=== PATIENT | male | born 1935 | race Caucasian/White ===

== ENCOUNTER 2016-07-23 10:55 | Emergency (ER) | payer SELFPAY ==
[~2016-07-23] VITALS: Ht 172.7 cm; Wt 73.9 kg
[~2016-07-23 10:55] MED LIST: AMIODARONE HCL200 MG PO; AMLODIPINE BESY10 MG PO; AMLODIPINE BESYL5 MG PO; ASPIR 8181 M1 PO; ASPIR-LOW81 MG PO; ATORVASTATIN CA40 MG PO; ATORVASTATIN CA80 MG PO; ATROVENT 00.5 MG/2.5 IH; Ambien PO; CARDIZEM CD,CA300 MG PO; CARDIZEM30 MG PO; CATAPRES0.1 MG PO; COZAAR100 MG PO; CRESTOR20 MG PO; Catapres PO; Colace PO; Cozaar PO; DEXTROSE IV; DILTIAZEM IV; DORZOLAMIDE BOTH EYES; DORZOLAMIDE-TIM10 ML BOTH EYES; Dextrose 10% in Wate IV; Dextrose 50% in Wate IV; ELIQUIS5 MG PO; Ecotrin PO; FISH OIL 1,0001 EACH PO; GLAUCOMA EYE DROP BOTH EYES; GLUCAGEN1 MG IM/SC; HYDROCHLOROTH12.5 M3 PO; HYDROCHLOROTHIA25 MG PO; LASIX20 MG PO; LASIX40 MG PO; LATANOPROST2.5 ML BOTH EYES; LOPRESSOR100 M1 PO; LOPRESSOR25 MG PO; LOPRESSOR50 MG PO; LOSARTAN POTAS100 MG PO; Levaquin PO; METOPROLOL TAR100 MG PO; METOPROLOL TART25 MG PO; METOPROLOL TART50 MG PO; Maalox, Mylanta PO; NEXTERONE360 MG/200 IV; NORVASC10 MG PO; Nitrostat,NitroQuick SL; Norvasc PO; PLAVIX75 MG PO; POTASSIUM CHLO10 ME3 PO; Pepcid PO; Percocet 5/325,Endoc PO; SALINE FLUSH 5 M5 ML IV; TYLENOL REGULA325 MG PO; XALATAN2.5 ML BOTH EYES; Xopenex IH; Zofran IV; predniSONE PO
[2016-07-23] MEDS ORDERED: ULTRAM50 MG PO (14:20)
[2016-07-23 14:35] VITALS: BP 176/87
== END 2016-07-23 14:37 | disposition home or self-care (01) ==
LOC: EME 10:55
DX: S43.401A Unspecified sprain of right shoulder joint, initial encounter (principal); W18.09XA Striking against other object with subsequent fall, initial encounter; Y92.511 Restaurant or cafe as the place of occurrence of the external cause; Y93.01 Activity, walking, marching and hiking; E78.5 Hyperlipidemia, unspecified; I10 Essential (primary) hypertension; Z87.442 Personal history of urinary calculi; Z95.5 Presence of coronary angioplasty implant and graft; Z79.82 Long term (current) use of aspirin; Z79.01 Long term (current) use of anticoagulants; I48.91 Unspecified atrial fibrillation; Z87.891 Personal history of nicotine dependence
CPT/HCPCS: 71250; 73030; 99281; 99284

== ENCOUNTER 2017-09-03 09:25 | Day surgery (SDC) | payer OTHER, MEDICARE ==
[~2017-09-03] VITALS: Ht 172.7 cm; Wt 73.0 kg
[~2017-09-03 09:25] MED LIST changes: +FUROSEMIDE40 MG PO; +ULTRAM50 MG PO; +VALACYCLOVIR500 MG PO
== END 2017-09-03 12:30 | disposition home or self-care (01) ==
LOC: CATH 09:25
PROC: 5A2204Z Restoration of Cardiac Rhythm, Single (ICD-10-PCS; principal; 2017-09-03)
DX: I48.0 Paroxysmal atrial fibrillation (principal); I48.92 Unspecified atrial flutter; I25.10 Atherosclerotic heart disease of native coronary artery without angina pectoris; Z98.1 Arthrodesis status; I10 Essential (primary) hypertension; E78.5 Hyperlipidemia, unspecified; Z79.01 Long term (current) use of anticoagulants
CPT/HCPCS: 93005

== ENCOUNTER 2017-09-11 19:35 | Inpatient (IN) | payer OTHER, MEDICARE ==
[~2017-09-11] VITALS: Ht 172.7 cm; Wt 67.4 kg
[2017-09-11 04:50] VITALS: BP 132/94
[~2017-09-11 19:35] MED LIST changes: -FUROSEMIDE40 MG PO; +LASIX80 MG PO
[2017-09-11 20:28] LABS: HEMATOCRIT 43.4 % (38.0-50.0); HEMOGLOBIN 15.1 G/DL (12.5-16.6); MCH 31.2 PG (29.0-34.0); MCHC 34.8 G/DL (30.0-36.0); MCV 89.7 FL (86-99); PLATELET COUNT 317 K/uL (156-360); RBC DIS.WIDTH-CV 14.2 % (11.8-14.6); RBC DIS.WIDTH-SD 46.5 % (39-53); RED BLOOD COUNT 4.84 M/uL (4.00-5.50); WHITE BLOOD COUNT 14.5 K/uL (4.1-10.2)
[2017-09-11 20:41] LABS: CHLORIDE 106 mEq/L (99-109); POTASSIUM 3.4 mEq/L (3.7-5.4); SODIUM 141 mEq/L (136-147)
[2017-09-11 20:42] LABS: GLUCOSE 110 mg/dL (70-99)
[2017-09-11 20:46] LABS: GFR ESTIMATE (CALCULATED) > 59 mL/min/ (58.99-99999)
[2017-09-11 20:46] LABS: CARBON DIOXIDE (BICARBONATE) 27.2 MEQ/L (20-31)
[2017-09-11 20:47] LABS: UREA NITROGEN (BUN) 17 mg/dL (9-23)
[2017-09-11 20:52] LABS: TROP-I INTERPRETATION NEGATIVE; TROPONIN-I 0.02 ng/mL (0.0-0.30)
[2017-09-11] MEDS ORDERED: MULTAQ400 MG PO (20:58)
[2017-09-12] VITALS (8 sets, daily range): BP systolic 108–132; BP diastolic 68–94
[2017-09-12 02:54] LABS: TROP-I INTERPRETATION NEGATIVE; TROPONIN-I 0.02 ng/mL (0.0-0.30)
[2017-09-12 04:37] LABS: BASOPHIL (%) 0.8 % (0-1); BASOPHIL COUNT 0.1 K/uL (0-0.1); EOSINOPHIL (%) 5.5 % (0-5); EOSINOPHIL COUNT 0.7 K/uL (0-0.3); HEMATOCRIT 44.3 % (38.0-50.0); HEMOGLOBIN 15.2 G/DL (12.5-16.6); IMMATURE GRANULOCYTE (%) 0.4 % (0.0-0.7); LYMPHOCYTE (%) 7.9 % (15-42); LYMPHOCYTE COUNT 1.1 K/uL (1.0-2.8); MCHC 34.3 G/DL (30.0-36.0); MCV 90.4 FL (86-99); MONOCYTE (%) 5.2 % (3-12); MONOCYTE COUNT 0.7 K/uL (0-0.8); NEUTROPHIL (%) 80.2 % (45-76); NEUTROPHIL COUNT 10.8 K/uL (1.8-6.4); PLATELET COUNT 298 K/uL (156-360); RBC DIS.WIDTH-CV 14.3 % (11.8-14.6); RBC DIS.WIDTH-SD 47.5 % (39-53); WHITE BLOOD COUNT 13.5 K/uL (4.1-10.2)
[2017-09-12 04:49] LABS: CHLORIDE 109 mEq/L (99-109); POTASSIUM 3.6 mEq/L (3.7-5.4); SODIUM 143 mEq/L (136-147)
[2017-09-12 04:51] LABS: GLUCOSE 104 mg/dL (70-99)
[2017-09-12 04:55] LABS: CREATININE 0.9 mg/dL (0.6-1.3); GFR ESTIMATE (CALCULATED) > 59 mL/min/ (58.99-99999)
[2017-09-12 04:56] LABS: UREA NITROGEN (BUN) 17 mg/dL (9-23)
[2017-09-13 04:53] VITALS: BP 129/76
[2017-09-13 06:03] LABS: BASOPHIL (%) 0.5 % (0-1); BASOPHIL COUNT 0.1 K/uL (0-0.1); EOSINOPHIL (%) 4.2 % (0-5); EOSINOPHIL COUNT 0.7 K/uL (0-0.3); HEMATOCRIT 42.1 % (38.0-50.0); HEMOGLOBIN 14.1 G/DL (12.5-16.6); IMMATURE GRANULOCYTE (%) 0.5 % (0.0-0.7); LYMPHOCYTE (%) 5.1 % (15-42); LYMPHOCYTE COUNT 0.9 K/uL (1.0-2.8); MCH 30.8 PG (29.0-34.0); MCHC 33.5 G/DL (30.0-36.0); MCV 91.9 FL (86-99); MONOCYTE (%) 4.3 % (3-12); MONOCYTE COUNT 0.7 K/uL (0-0.8); NEUTROPHIL (%) 85.4 % (45-76); NEUTROPHIL COUNT 14.3 K/uL (1.8-6.4); PLATELET COUNT 354 K/uL (156-360); RBC DIS.WIDTH-CV 14.8 % (11.8-14.6); RBC DIS.WIDTH-SD 50.1 % (39-53); RED BLOOD COUNT 4.58 M/uL (4.00-5.50); WHITE BLOOD COUNT 16.8 K/uL (4.1-10.2)
[2017-09-13 06:34] LABS: CHLORIDE 106 MEQ/L (99-109); GFR ESTIMATE (CALCULATED) > 59 mL/min/ (58.99-99999); GLUCOSE 101 mg/dL (70-99); POTASSIUM 4.2 MEQ/L (3.7-5.4); SODIUM 140 MEQ/L (136-147); UREA NITROGEN (BUN) 20 mg/dL (9-23)
[2017-09-13 07:11] VITALS: BP 123/87
[2017-09-13 08:03] LABS: BASE EXCESS 0.9 mEq/L (-3 to +3); BICARBONATE 24.2 mEq/L (22-26); METHEMOGLOBIN 1.7 % (0-1.5); PCO2 34 mm Hg (35-45); PO2 77 mm Hg (80-100); pH 7.46 (7.35-7.45)
[2017-09-13 08:04] LABS: COMMENTS - BLOOD GASES +C; DEVICE HFNC; O2 FLOW 10 L/MIN; SITE RR +A; TOTAL RESP RATE 22 resp/min
[2017-09-13 12:30] VITALS: BP 114/73
[2017-09-13 20:04] VITALS: BP 104/67
[2017-09-13 22:11] VITALS: BP 109/76
[2017-09-14] VITALS (8 sets, daily range): BP systolic 100–131; BP diastolic 58–83
[2017-09-14 05:10] LABS: BASOPHIL (%) 0.4 % (0-1); BASOPHIL COUNT 0.1 K/uL (0-0.1); EOSINOPHIL COUNT 0.2 K/uL (0-0.3); HEMATOCRIT 44.7 % (38.0-50.0); LYMPHOCYTE (%) 5.2 % (15-42); LYMPHOCYTE COUNT 0.9 K/uL (1.0-2.8); MCH 30.9 PG (29.0-34.0); MCHC 33.6 G/DL (30.0-36.0); MONOCYTE (%) 3.5 % (3-12); MONOCYTE COUNT 0.6 K/uL (0-0.8); NEUTROPHIL (%) 88.9 % (45-76); NEUTROPHIL COUNT 15.9 K/uL (1.8-6.4); PLATELET COUNT 317 K/uL (156-360); RBC DIS.WIDTH-CV 14.7 % (11.8-14.6); RBC DIS.WIDTH-SD 49.6 % (39-53); RED BLOOD COUNT 4.86 M/uL (4.00-5.50); WHITE BLOOD COUNT 17.9 K/uL (4.1-10.2)
[2017-09-14 05:49] LABS: CHLORIDE 105 mEq/L (99-109); POTASSIUM 3.8 mEq/L (3.7-5.4); SODIUM 139 mEq/L (136-147)
[2017-09-14 05:50] LABS: MAGNESIUM 2.1 mg/dL (1.3-2.7)
[2017-09-14 05:51] LABS: GLUCOSE 123 mg/dL (70-99)
[2017-09-14 05:55] LABS: GFR ESTIMATE (CALCULATED) > 59 mL/min/ (58.99-99999); UREA NITROGEN (BUN) 27 mg/dL (9-23)
[2017-09-15 04:45] VITALS: BP 98/54
[2017-09-15 05:45] LABS: BASOPHIL (%) 0.1 % (0-1); EOSINOPHIL (%) 0 % (0-5); HEMATOCRIT 41.9 % (38.0-50.0); HEMOGLOBIN 13.7 G/DL (12.5-16.6); IMMATURE GRANULOCYTE (%) 0.9 % (0.0-0.7); LYMPHOCYTE (%) 3.8 % (15-42); LYMPHOCYTE COUNT 0.9 K/uL (1.0-2.8); MCHC 32.7 G/DL (30.0-36.0); MCV 91.9 FL (86-99); MONOCYTE COUNT 0.5 K/uL (0-0.8); NEUTROPHIL (%) 93.2 % (45-76); NEUTROPHIL COUNT 21.7 K/uL (1.8-6.4); RBC DIS.WIDTH-CV 14.9 % (11.8-14.6); RBC DIS.WIDTH-SD 50.9 % (39-53); RED BLOOD COUNT 4.56 M/uL (4.00-5.50); WHITE BLOOD COUNT 23.3 K/uL (4.1-10.2)
[2017-09-15 05:50] LABS: CHLORIDE 108 MEQ/L (99-109); GFR ESTIMATE (CALCULATED) > 59 mL/min/ (58.99-99999); GLUCOSE 154 mg/dL (70-99); POTASSIUM 4.2 MEQ/L (3.7-5.4); SODIUM 144 MEQ/L (136-147); UREA NITROGEN (BUN) 31 mg/dL (9-23)
[2017-09-15 06:27] LABS: PLATELET COUNT 500 K/uL (156-360)
[2017-09-15 07:22] VITALS: BP 92/62
[2017-09-15 12:11] VITALS: BP 92/62
[2017-09-15 17:26] VITALS: BP 100/64
[2017-09-15 21:16] VITALS: BP 138/76
[2017-09-15 22:50] LABS: C DIFF TOXIN NEGATIVE (NEGATIVE)
[2017-09-16] VITALS: BP 118/76
[2017-09-16 04:19] VITALS: BP 113/71
[2017-09-16 05:01] LABS: BASOPHIL (%) 0.1 % (0-1); EOSINOPHIL (%) 0 % (0-5); HEMATOCRIT 40.3 % (38.0-50.0); HEMOGLOBIN 13.4 G/DL (12.5-16.6); IMMATURE GRANULOCYTE (%) 0.7 % (0.0-0.7); LYMPHOCYTE (%) 3.7 % (15-42); LYMPHOCYTE COUNT 0.7 K/uL (1.0-2.8); MCH 30.9 PG (29.0-34.0); MCHC 33.3 G/DL (30.0-36.0); MCV 93.1 FL (86-99); MONOCYTE (%) 2.1 % (3-12); MONOCYTE COUNT 0.4 K/uL (0-0.8); NEUTROPHIL (%) 93.4 % (45-76); NEUTROPHIL COUNT 18.7 K/uL (1.8-6.4); PLATELET COUNT 487 K/uL (156-360); RBC DIS.WIDTH-SD 51.8 % (39-53); RED BLOOD COUNT 4.33 M/uL (4.00-5.50)
[2017-09-16 05:16] LABS: CHLORIDE 111 mEq/L (99-109); POTASSIUM 4.2 mEq/L (3.7-5.4); SODIUM 145 mEq/L (136-147)
[2017-09-16 05:18] LABS: GLUCOSE 142 mg/dL (70-99)
[2017-09-16 05:21] LABS: CREATININE 1.1 mg/dL (0.6-1.3); GFR ESTIMATE (CALCULATED) > 59 mL/min/ (58.99-99999)
[2017-09-16 05:22] LABS: UREA NITROGEN (BUN) 38 mg/dL (9-23)
[2017-09-16 08:20] VITALS: BP 122/80
[2017-09-16 11:40] VITALS: BP 106/57
[2017-09-16 15:14] VITALS: BP 124/60
[2017-09-16 19:55] VITALS: BP 142/68
[2017-09-17] VITALS (7 sets, daily range): BP systolic 124–178; BP diastolic 62–84
[2017-09-17 05:53] LABS: BASOPHIL (%) 0.1 % (0-1); EOSINOPHIL (%) 0 % (0-5); HEMATOCRIT 39.9 % (38.0-50.0); HEMOGLOBIN 12.8 G/DL (12.5-16.6); IMMATURE GRANULOCYTE (%) 1.2 % (0.0-0.7); LYMPHOCYTE (%) 3.9 % (15-42); LYMPHOCYTE COUNT 0.7 K/uL (1.0-2.8); MCH 30.4 PG (29.0-34.0); MCHC 32.1 G/DL (30.0-36.0); MCV 94.8 FL (86-99); MONOCYTE (%) 2.7 % (3-12); MONOCYTE COUNT 0.5 K/uL (0-0.8); NEUTROPHIL (%) 92.1 % (45-76); PLATELET COUNT 488 K/uL (156-360); RBC DIS.WIDTH-CV 15.2 % (11.8-14.6); RBC DIS.WIDTH-SD 53.5 % (39-53); RED BLOOD COUNT 4.21 M/uL (4.00-5.50); WHITE BLOOD COUNT 17.3 K/uL (4.1-10.2)
[2017-09-17 06:31] LABS: CHLORIDE 112 MEQ/L (99-109); GFR ESTIMATE (CALCULATED) > 59 mL/min/ (58.99-99999); GLUCOSE 132 mg/dL (70-99); POTASSIUM 4.5 MEQ/L (3.7-5.4); SODIUM 146 MEQ/L (136-147); UREA NITROGEN (BUN) 35 mg/dL (9-23)
[2017-09-17 21:13] LABS: BASE EXCESS 0.3 mEq/L (-3 to +3); BICARBONATE 24.6 mEq/L (22-26); CARBOXY HGB 1.6 % (0-5); METHEMOGLOBIN 1.5 % (0-1.5); PCO2 38 mm Hg (35-45); PO2 63 mm Hg (80-100); SITE RR; pH 7.42 (7.35-7.45)
[2017-09-17 21:14] LABS: COMMENTS - BLOOD GASES A+C+; DEVICE HHFNC; FI02 100 %; O2 FLOW 70 L/MIN
[2017-09-18] VITALS (22 sets, daily range): BP systolic 92–177; BP diastolic 49–149
[2017-09-18 02:47] LABS: BASE EXCESS 0.6 mEq/L (-3 to +3); BICARBONATE 26.6 mEq/L (22-26); CARBOXY HGB 1.6 % (0-5); METHEMOGLOBIN 1.4 % (0-1.5); PCO2 47 mm Hg (35-45); PO2 73 mm Hg (80-100); pH 7.36 (7.35-7.45)
[2017-09-18 02:48] LABS: COMMENTS - BLOOD GASES A+C+; DEVICE VENT; FI02 100 %; INSPIRATION TIME 0.8 seconds; MECHANICAL RATE 14 resp/min; MODE ACVC+; PEEP 12 CM/H20; SITE LR; TIDAL VOLUME 450 ML; TOTAL RESP RATE 23 resp/min
[2017-09-18 03:15] LABS: APPEARANCE SL.HAZY ((CLEAR)); BILIRUBIN NEGATIVE; BLOOD MODERATE; COLOR YELLOW ((YELLOW)); GLUCOSE (STRIP) NEGATIVE; KETONES NEGATIVE; LEUKOCYTES NEGATIVE; NITRITE NEGATIVE; PROTEIN (STRIP) 100; SPECIFIC GRAVITY 1.023 (1.000-1.030); UROBILINOGEN 0.2 MG/DL (0.2-1.0)
[2017-09-18 03:26] LABS: BASOPHIL (%) 0.1 % (0-1); EOSINOPHIL (%) 0 % (0-5); HEMATOCRIT 39.9 % (38.0-50.0); IMMATURE GRANULOCYTE (%) 0.9 % (0.0-0.7); LYMPHOCYTE COUNT 0.5 K/uL (1.0-2.8); MCH 30.7 PG (29.0-34.0); MCHC 32.6 G/DL (30.0-36.0); MCV 94.3 FL (86-99); MONOCYTE (%) 3.4 % (3-12); MONOCYTE COUNT 0.6 K/uL (0-0.8); NEUTROPHIL (%) 92.6 % (45-76); NEUTROPHIL COUNT 15.7 K/uL (1.8-6.4); PLATELET COUNT 466 K/uL (156-360); RED BLOOD COUNT 4.23 M/uL (4.00-5.50)
[2017-09-18 03:30] LABS: BACTERIA RARE /HPF; EPITHELIAL CELLS RARE /HPF; MUCUS 2+ /LPF
[2017-09-18 03:38] LABS: CHLORIDE 112 mEq/L (99-109); POTASSIUM 4.7 mEq/L (3.7-5.4); SODIUM 145 mEq/L (136-147)
[2017-09-18 03:39] LABS: GLUCOSE 132 mg/dL (70-99)
[2017-09-18 03:43] LABS: CREATININE 1.1 mg/dL (0.6-1.3); GFR ESTIMATE (CALCULATED) > 59 mL/min/ (58.99-99999)
[2017-09-18 03:44] LABS: UREA NITROGEN (BUN) 38 mg/dL (9-23)
[2017-09-18 04:28] LABS: TRIGLYCERIDES 131 MG/DL (Normal: <150)
[2017-09-19] VITALS (22 sets, daily range): BP systolic 114–154; BP diastolic 55–73
[2017-09-19 05:54] LABS: HEMATOCRIT 37.9 % (38.0-50.0); HEMOGLOBIN 12.1 G/DL (12.5-16.6); MCH 30.1 PG (29.0-34.0); MCHC 31.9 G/DL (30.0-36.0); MCV 94.3 FL (86-99); NRBC (%) 0.2 /100 WBC (0-0); PLATELET COUNT 400 K/uL (156-360); RBC DIS.WIDTH-CV 14.9 % (11.8-14.6); RBC DIS.WIDTH-SD 52.1 % (39-53); RED BLOOD COUNT 4.02 M/uL (4.00-5.50); WHITE BLOOD COUNT 12.3 K/uL (4.1-10.2)
[2017-09-19 06:13] LABS: CHLORIDE 114 MEQ/L (99-109); GFR ESTIMATE (CALCULATED) > 59 mL/min/ (58.99-99999); GLUCOSE 194 mg/dL (70-99); POTASSIUM 4.5 MEQ/L (3.7-5.4); SODIUM 146 MEQ/L (136-147); UREA NITROGEN (BUN) 37 mg/dL (9-23)
[2017-09-19 12:32] LABS: BASE EXCESS 2.8 mEq/L (-3 to +3); BICARBONATE 27.9 mEq/L (22-26); CARBOXY HGB 1.7 % (0-5); COMMENTS - BLOOD GASES C+; METHEMOGLOBIN 1.1 % (0-1.5); PCO2 44 mm Hg (35-45); PO2 70 mm Hg (80-100); SITE LB; pH 7.41 (7.35-7.45)
[2017-09-19 12:33] LABS: DEVICE VENT; FI02 35 %; MODE SPONT; PEEP 12 CM/H20; PRES. SUPPORT 15 CM/H2O; TOTAL RESP RATE 23 resp/min
[2017-09-20] VITALS (23 sets, daily range): BP systolic 133–182; BP diastolic 60–84
[2017-09-20 05:50] LABS: BASOPHIL (%) 0.1 % (0-1); EOSINOPHIL (%) 0 % (0-5); HEMATOCRIT 38.9 % (38.0-50.0); HEMOGLOBIN 12.3 G/DL (12.5-16.6); IMMATURE GRANULOCYTE (%) 1.2 % (0.0-0.7); LYMPHOCYTE (%) 2.9 % (15-42); LYMPHOCYTE COUNT 0.4 K/uL (1.0-2.8); MCH 29.7 PG (29.0-34.0); MCHC 31.6 G/DL (30.0-36.0); MONOCYTE (%) 2.9 % (3-12); MONOCYTE COUNT 0.4 K/uL (0-0.8); NEUTROPHIL (%) 92.9 % (45-76); NEUTROPHIL COUNT 11.2 K/uL (1.8-6.4); PLATELET COUNT 383 K/uL (156-360); RBC DIS.WIDTH-CV 14.9 % (11.8-14.6); RBC DIS.WIDTH-SD 51.5 % (39-53); RED BLOOD COUNT 4.14 M/uL (4.00-5.50); WHITE BLOOD COUNT 12.1 K/uL (4.1-10.2)
[2017-09-20 06:19] LABS: CHLORIDE 115 MEQ/L (99-109); CREATININE 0.9 MG/DL (0.6-1.3); GFR ESTIMATE (CALCULATED) > 59 mL/min/ (58.99-99999); GLUCOSE 230 mg/dL (70-99); MAGNESIUM 3.1 mg/dl (1.3-2.7); PHOSPHORUS 2.3 mg/dL (2.5-4.9); POTASSIUM 4.7 MEQ/L (3.7-5.4); SODIUM 150 MEQ/L (136-147); UREA NITROGEN (BUN) 38 mg/dL (9-23)
[2017-09-21] VITALS (25 sets, daily range): BP systolic 115–207; BP diastolic 17–88
[2017-09-21 14:37] LABS: BASE EXCESS 5.4 mEq/L (-3 to +3); CARBOXY HGB 1.9 % (0-5); METHEMOGLOBIN 1.4 % (0-1.5); PO2 80 mm Hg (80-100); pH 7.49 (7.35-7.45)
[2017-09-21 14:38] LABS: COMMENTS - BLOOD GASES A+C+; DEVICE VENT; FI02 40 %; MODE SPONTPS; PCO2 38 mm Hg (35-45); PEEP 5 CM/H20; PRES. SUPPORT 10 CM/H2O; SITE RR; TOTAL RESP RATE 28 resp/min
[2017-09-21 17:39] LABS: BASE EXCESS 4.7 mEq/L (-3 to +3); BICARBONATE 28.2 mEq/L (22-26); CARBOXY HGB 1.7 % (0-5); DEVICE VENT; FI02 40 %; METHEMOGLOBIN 1.6 % (0-1.5); MODE SPONT; PCO2 37 mm Hg (35-45); PO2 76 mm Hg (80-100); SITE LR; pH 7.49 (7.35-7.45)
[2017-09-21 17:40] LABS: PEEP 5 CM/H20; PRES. SUPPORT 5 CM/H2O; TOTAL RESP RATE 28 resp/min
[2017-09-22] VITALS (22 sets, daily range): BP systolic 122–188; BP diastolic 60–87
[2017-09-22 12:41] LABS: BASOPHIL (%) 0.2 % (0-1); EOSINOPHIL (%) 0 % (0-5); HEMATOCRIT 46.5 % (38.0-50.0); IMMATURE GRANULOCYTE (%) 1.3 % (0.0-0.7); LYMPHOCYTE (%) 2.4 % (15-42); LYMPHOCYTE COUNT 0.4 K/uL (1.0-2.8); MCH 30.3 PG (29.0-34.0); MCHC 32.3 G/DL (30.0-36.0); MCV 93.9 FL (86-99); MONOCYTE (%) 3.4 % (3-12); MONOCYTE COUNT 0.6 K/uL (0-0.8); NEUTROPHIL (%) 92.7 % (45-76); NEUTROPHIL COUNT 15.9 K/uL (1.8-6.4); PLATELET COUNT 383 K/uL (156-360); RBC DIS.WIDTH-CV 14.6 % (11.8-14.6); RBC DIS.WIDTH-SD 50.7 % (39-53); RED BLOOD COUNT 4.95 M/uL (4.00-5.50); WHITE BLOOD COUNT 17.2 K/uL (4.1-10.2)
[2017-09-22 13:19] LABS: ALBUMIN 2.6 G/DL (3.2-4.8); ALKALINE PHOSPHATASE 48 IU/L (3-129); ALT (GPT) 93 IU/L (3-49); AST (GOT) 29 IU/L (2-34); CHLORIDE 112 MEQ/L (99-109); CREATININE 0.6 MG/DL (0.6-1.3); GFR ESTIMATE (CALCULATED) > 59 mL/min/ (58.99-99999); GLUCOSE 133 mg/dL (70-99); POTASSIUM 4.2 MEQ/L (3.7-5.4); SODIUM 147 MEQ/L (136-147); TOTAL BILIRUBIN 2.2 MG/DL (0.0-1.0); TOTAL PROTEIN 6.5 G/DL (6.4-8.3); UREA NITROGEN (BUN) 29 mg/dL (9-23)
[2017-09-22 13:21] LABS: MAGNESIUM 2.5 mg/dl (1.3-2.7); PHOSPHORUS 4.1 mg/dL (2.5-4.9)
[2017-09-23 04:25] VITALS: BP 157/73
[2017-09-23 08:43] VITALS: BP 132/89
[2017-09-23 10:48] VITALS: BP 136/74
[2017-09-23 15:10] VITALS: BP 133/69
[2017-09-23 19:00] VITALS: BP 123/68
[2017-09-23 23:13] VITALS: BP 126/58
[2017-09-24 04:45] VITALS: BP 132/59
[2017-09-24 05:07] LABS: BASOPHIL (%) 0.2 % (0-1); EOSINOPHIL (%) 0 % (0-5); HEMATOCRIT 44.4 % (38.0-50.0); HEMOGLOBIN 15.2 G/DL (12.5-16.6); LYMPHOCYTE (%) 2.3 % (15-42); LYMPHOCYTE COUNT 0.5 K/uL (1.0-2.8); MCH 31.1 PG (29.0-34.0); MCHC 34.2 G/DL (30.0-36.0); MONOCYTE (%) 3.2 % (3-12); MONOCYTE COUNT 0.7 K/uL (0-0.8); NEUTROPHIL (%) 93.3 % (45-76); NEUTROPHIL COUNT 19.3 K/uL (1.8-6.4); PLATELET COUNT 340 K/uL (156-360); RBC DIS.WIDTH-CV 14.7 % (11.8-14.6); RBC DIS.WIDTH-SD 48.5 % (39-53); RED BLOOD COUNT 4.88 M/uL (4.00-5.50); WHITE BLOOD COUNT 20.7 K/uL (4.1-10.2)
[2017-09-24 05:41] LABS: CHLORIDE 108 mEq/L (99-109); POTASSIUM 4.2 mEq/L (3.7-5.4); SODIUM 141 mEq/L (136-147)
[2017-09-24 05:43] LABS: GLUCOSE 137 mg/dL (70-99)
[2017-09-24 05:48] LABS: CREATININE 0.7 mg/dL (0.6-1.3); GFR ESTIMATE (CALCULATED) > 59 mL/min/ (58.99-99999); UREA NITROGEN (BUN) 37 mg/dL (9-23)
[2017-09-24 07:00] VITALS: BP 135/87
[2017-09-24 11:15] VITALS: BP 116/54
[2017-09-24 14:36] VITALS: BP 113/63
[2017-09-24 20:52] VITALS: BP 120/61
[2017-09-24 23:50] VITALS: BP 119/64
[2017-09-25 05:45] LABS: BASOPHIL (%) 0.1 % (0-1); EOSINOPHIL (%) 0.1 % (0-5); HEMOGLOBIN 14.1 G/DL (12.5-16.6); IMMATURE GRANULOCYTE (%) 0.7 % (0.0-0.7); LYMPHOCYTE (%) 4.3 % (15-42); LYMPHOCYTE COUNT 0.9 K/uL (1.0-2.8); MCH 31.1 PG (29.0-34.0); MCHC 33.6 G/DL (30.0-36.0); MCV 92.5 FL (86-99); MONOCYTE (%) 3.8 % (3-12); MONOCYTE COUNT 0.8 K/uL (0-0.8); NEUTROPHIL COUNT 19.5 K/uL (1.8-6.4); PLATELET COUNT 268 K/uL (156-360); RBC DIS.WIDTH-CV 15.1 % (11.8-14.6); RBC DIS.WIDTH-SD 49.9 % (39-53); RED BLOOD COUNT 4.54 M/uL (4.00-5.50); WHITE BLOOD COUNT 21.4 K/uL (4.1-10.2)
[2017-09-25 06:08] VITALS: BP 128/74
[2017-09-25 06:08] LABS: CHLORIDE 108 MEQ/L (99-109); CREATININE 0.7 MG/DL (0.6-1.3); GFR ESTIMATE (CALCULATED) > 59 mL/min/ (58.99-99999); GLUCOSE 93 mg/dL (70-99); POTASSIUM 4.1 MEQ/L (3.7-5.4); SODIUM 142 MEQ/L (136-147); UREA NITROGEN (BUN) 34 mg/dL (9-23)
[2017-09-25 07:00] VITALS: BP 133/67
[2017-09-25 12:00] VITALS: BP 125/65
[2017-09-25 15:23] VITALS: BP 135/60
[2017-09-25 20:41] VITALS: BP 127/75
[2017-09-26 00:13] VITALS: BP 125/69
[2017-09-26 03:53] VITALS: BP 133/77
[2017-09-26 05:26] LABS: HEMATOCRIT 42.5 % (38.0-50.0); HEMOGLOBIN 13.8 G/DL (12.5-16.6); MCH 29.9 PG (29.0-34.0); MCHC 32.5 G/DL (30.0-36.0); PLATELET COUNT 251 K/uL (156-360); RBC DIS.WIDTH-SD 49.8 % (39-53); RED BLOOD COUNT 4.62 M/uL (4.00-5.50); WHITE BLOOD COUNT 20.4 K/uL (4.1-10.2)
[2017-09-26 05:51] LABS: CHLORIDE 108 MEQ/L (99-109); CREATININE 0.7 MG/DL (0.6-1.3); GFR ESTIMATE (CALCULATED) > 59 mL/min/ (58.99-99999); GLUCOSE 138 mg/dL (70-99); POTASSIUM 4.4 MEQ/L (3.7-5.4); SODIUM 142 MEQ/L (136-147); UREA NITROGEN (BUN) 28 mg/dL (9-23)
[2017-09-26 07:06] VITALS: BP 142/84
[2017-09-26 12:05] VITALS: BP 106/67
[2017-09-26 15:13] VITALS: BP 134/72
[2017-09-26 20:09] VITALS: BP 153/84
[2017-09-27 01:19] VITALS: BP 118/79
[2017-09-27 03:15] VITALS: BP 140/87
[2017-09-27 08:04] VITALS: BP 126/83
[2017-09-27 08:16] LABS: BASE EXCESS 1.5 mEq/L (-3 to +3); BICARBONATE 24.7 mEq/L (22-26); CARBOXY HGB 1.9 % (0-5); METHEMOGLOBIN 1.6 % (0-1.5); PCO2 34 mm Hg (35-45); pH 7.47 (7.35-7.45)
[2017-09-27 08:17] LABS: COMMENTS - BLOOD GASES +C; DEVICE HHNC; FI02 100 %; O2 FLOW 50 L/MIN; PO2 50 mm Hg (80-100); SITE RR +A; TOTAL RESP RATE 24 resp/min
[2017-09-27 11:59] VITALS: BP 123/70
[2017-09-27 12:03] LABS: HIGH-SENS C-REACTIVE PROTEIN 3.02 MG/DL (0.02-0.20)
[2017-09-27 15:59] VITALS: BP 130/65
[2017-09-27 19:19] VITALS: BP 134/90
[2017-09-28] VITALS: BP 169/75
[2017-09-28 04:09] VITALS: BP 141/75
[2017-09-28 06:06] LABS: HEMOGLOBIN 13.5 G/DL (12.5-16.6); MCH 30.3 PG (29.0-34.0); MCHC 32.9 G/DL (30.0-36.0); MCV 91.9 FL (86-99); PLATELET COUNT 219 K/uL (156-360); RBC DIS.WIDTH-CV 15.3 % (11.8-14.6); RBC DIS.WIDTH-SD 50.3 % (39-53); RED BLOOD COUNT 4.46 M/uL (4.00-5.50); WHITE BLOOD COUNT 20.5 K/uL (4.1-10.2)
[2017-09-28 07:47] VITALS: BP 127/87
[2017-09-28 09:24] LABS: CHLORIDE 107 MEQ/L (99-109); POTASSIUM 3.7 MEQ/L (3.7-5.4); SODIUM 144 MEQ/L (136-147)
[2017-09-28 09:30] LABS: CREATININE 0.8 MG/DL (0.6-1.3); GFR ESTIMATE (CALCULATED) > 59 mL/min/ (58.99-99999); GLUCOSE 169 mg/dL (70-99); UREA NITROGEN (BUN) 28 mg/dL (9-23)
[2017-09-28 11:53] VITALS: BP 113/65
[2017-09-28 15:18] VITALS: BP 129/71
[2017-09-28 20:39] VITALS: BP 112/67
[2017-09-29 00:29] VITALS: BP 141/67
[2017-09-29 04:20] VITALS: BP 138/62
[2017-09-29 07:18] VITALS: BP 127/77
[2017-09-29 11:21] VITALS: BP 140/65
[2017-09-29 16:55] VITALS: BP 149/67
[2017-09-29 20:05] VITALS: BP 134/65
[2017-09-30 01:17] VITALS: BP 132/64
[2017-09-30 05:15] VITALS: BP 136/62
[2017-09-30 05:31] LABS: CHLORIDE 104 mEq/L (99-109); POTASSIUM 4.2 mEq/L (3.7-5.4); SODIUM 143 mEq/L (136-147)
[2017-09-30 05:33] LABS: GLUCOSE 132 mg/dL (70-99)
[2017-09-30 05:37] LABS: CREATININE 0.7 mg/dL (0.6-1.3); GFR ESTIMATE (CALCULATED) > 59 mL/min/ (58.99-99999)
[2017-09-30 05:38] LABS: UREA NITROGEN (BUN) 31 mg/dL (9-23)
[2017-09-30 05:39] LABS: CREATININE 0.7 mg/dL (0.6-1.3); GFR ESTIMATE (CALCULATED) > 59 mL/min/ (58.99-99999)
[2017-09-30 08:13] VITALS: BP 171/73
[2017-09-30 12:04] VITALS: BP 156/73
[2017-09-30 16:55] VITALS: BP 138/64
[2017-09-30 20:04] VITALS: BP 150/78
[2017-10-01 00:21] VITALS: BP 141/70
[2017-10-01 04:00] VITALS: BP 144/72
[2017-10-01 07:33] LABS: CHLORIDE 100 MEQ/L (99-109); CREATININE 0.7 MG/DL (0.6-1.3); GFR ESTIMATE (CALCULATED) > 59 mL/min/ (58.99-99999); GLUCOSE 146 mg/dL (70-99); POTASSIUM 3.9 MEQ/L (3.7-5.4); SODIUM 142 MEQ/L (136-147); UREA NITROGEN (BUN) 30 mg/dL (9-23)
[2017-10-01 07:37] VITALS: BP 163/81
[2017-10-01] MEDS ORDERED: MORPHINE CON20 MG/M1 PO (10:19)
[2017-10-01] MEDS ORDERED: ATIVAN0.5 MG PO (10:19)
== END 2017-10-01 13:26 | DRG 166 ==
LOC: EME 19:35 → EDOF 21:42 → 4EAST 21:42 → 4WEST 21:42 → ENRESERV 21:43 → 4EAST 23:58 → ENRESERV 09-18 00:29 → 4WEST 09-18 00:45 → ENRESERV 09-22 19:14 → 4EAST 09-22 22:11
PROVIDERS: Emergency Medicine; Hospitalist; Internal Medicine; Internal Medicine Cardiovascular Disease; Internal Medicine Pulmonary Disease; Specialist; Student in an Organized Health Care Education/Training Program
PROC: 5A1945Z Respiratory Ventilation, 24-96 Consecutive Hours (ICD-10-PCS; principal; 2017-09-18)
PROC: 0BH17EZ Insertion of Endotracheal Airway into Trachea, Via Natural or Artificial Opening (ICD-10-PCS; principal; 2017-09-18)
PROC: 0B9J8ZX Drainage of Left Lower Lung Lobe, Via Natural or Artificial Opening Endoscopic, Diagnostic (ICD-10-PCS; 2017-09-19)
PROC: 0B9D8ZX Drainage of Right Middle Lung Lobe, Via Natural or Artificial Opening Endoscopic, Diagnostic (ICD-10-PCS; 2017-09-19)
PROC: 0B9F8ZX Drainage of Right Lower Lung Lobe, Via Natural or Artificial Opening Endoscopic, Diagnostic (ICD-10-PCS; 2017-09-19)
DX: J84.112 Idiopathic pulmonary fibrosis (principal); J96.21 Acute and chronic respiratory failure with hypoxia; I48.0 Paroxysmal atrial fibrillation; I48.2 Chronic atrial fibrillation; I27.20 Pulmonary hypertension, unspecified; I47.2 Ventricular tachycardia; I48.92 Unspecified atrial flutter; I49.5 Sick sinus syndrome; E87.0 Hyperosmolality and hypernatremia; I13.0 Hypertensive heart and chronic kidney disease with heart failure and stage 1 through stage 4 chronic kidney disease, or unspecified chronic kidney disease; I50.9 Heart failure, unspecified; N18.9 Chronic kidney disease, unspecified; E87.6 Hypokalemia; R73.09 Other abnormal glucose; T38.0X5A Adverse effect of glucocorticoids and synthetic analogues, initial encounter; I35.0 Nonrheumatic aortic (valve) stenosis; Z66 Do not resuscitate; Z51.5 Encounter for palliative care; I25.10 Atherosclerotic heart disease of native coronary artery without angina pectoris; E78.5 Hyperlipidemia, unspecified; I73.89 Other specified peripheral vascular diseases; Q21.1 Atrial septal defect; H40.9 Unspecified glaucoma; Z79.01 Long term (current) use of anticoagulants; Z79.82 Long term (current) use of aspirin; Z95.1 Presence of aortocoronary bypass graft; Z87.442 Personal history of urinary calculi; Z82.3 Family history of stroke
CPT/HCPCS: 36600; 71045; 71046; 71250; 76937; 80048; 80053; 80202; 81003; 82040; 82565; 82803; 82948; 83605; 83735; 83880; 84100; 84145 90; 84478; 84484; 85025; 85027; 86141; 87040; 87070; 87081; 87102; 87106; 87116; 87205; 87206; 87278; 87449; 87493; 87502; 87641; 93005; 93306; 94002; 94003; 94010; 94640; 94640 76; 94667; 94760; 94799; 97530 GO; 97530 GP; 99202; 99281; 99285; A6214; C1753; J0456; J0692; J0696; J1815; J1885; J1940; J2060; J2250; J2543; J2704; J2930; J3010; J3370; J7030; J7040; J7050; J7512; J7517

== ENCOUNTER 2017-10-01 11:47 | Inpatient (IN) | payer OTHER ==
[~2017-10-01 11:47] MED LIST changes: +ATIVAN0.5 MG PO; +MORPHINE CON20 MG/M1 PO; +MULTAQ400 MG PO
== END 2017-10-01 20:28 | DRG 196 ==
LOC: 5EAST 11:47 → CANRESERV 11:48 → ENRESERV 11:48 → 4EAST 13:30 → ENRESERV 14:43 → 5EAST 18:27
DX: J84.9 Interstitial pulmonary disease, unspecified (principal); Z66 Do not resuscitate; Z51.5 Encounter for palliative care; J96.01 Acute respiratory failure with hypoxia; I11.0 Hypertensive heart disease with heart failure; I50.9 Heart failure, unspecified; I48.91 Unspecified atrial fibrillation; I35.0 Nonrheumatic aortic (valve) stenosis; I25.10 Atherosclerotic heart disease of native coronary artery without angina pectoris; I73.9 Peripheral vascular disease, unspecified; I27.20 Pulmonary hypertension, unspecified; E78.5 Hyperlipidemia, unspecified; H40.9 Unspecified glaucoma; Z87.01 Personal history of pneumonia (recurrent); Z95.1 Presence of aortocoronary bypass graft; Z79.01 Long term (current) use of anticoagulants; Z82.3 Family history of stroke
CPT/HCPCS: J2060